=== PATIENT | female | born 1965 | race Caucasian/White ===

== ENCOUNTER 2018-10-01 17:37 | Emergency (ER) | payer OTHER ==
[2018-10-01] MEDS ORDERED: TORAdol 30 mg Injection IM ONE (18:31)
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
[2018-10-01] MEDS ORDERED: TORAdol 30 mg Injection ONE (19:09)
[2018-10-01 19:53] VITALS: BP 175/95; PULSE 88; O2SAT 98
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
== END 2018-10-01 19:55 | disposition home or self-care (01) ==
LOC: ED 17:37
DX: M54.12 Radiculopathy, cervical region (principal); S16.1XXA Strain of muscle, fascia and tendon at neck level, initial encounter; V43.61XA Car passenger injured in collision with sport utility vehicle in traffic accident, initial encounter; Y92.410 Unspecified street and highway as the place of occurrence of the external cause; M54.2 Cervicalgia; M25.511 Pain in right shoulder; I10 Essential (primary) hypertension; R20.0 Anesthesia of skin; Z79.899 Other long term (current) drug therapy
CPT/HCPCS: 70450; 72125; 96372; 99284; J1885; L0120